=== PATIENT | female | born 1965 | race African-American/Black ===

== ENCOUNTER 2017-03-09 06:42 | Emergency (ER) | payer MEDICAID ==
[~2017-03-09] VITALS: Ht 157.5 cm; Wt 57.0 kg
[2017-03-09] MEDS ORDERED: HYDROCHLOROTHIAZIDE 25MG TABLET PO ONE (07:45)
[2017-03-09] MEDS ORDERED: KETOROLAC 30MG/ML VIAL IM ONE (08:30)
[2017-03-09] MEDS ORDERED: ONDANSETRON 4MG ODT PO ONE (08:30)
[2017-03-09] MEDS: BENAZEPRIL 10MG TABLET PO SCH ×2 (08:35→09:12)
[2017-03-09 09:51] VITALS: BP 176/73
== END 2017-03-09 09:57 | disposition home or self-care (01) ==
LOC: ER 07:13
DX: L02.212 Cutaneous abscess of back [any part, except buttock and flank] (principal); M77.9 Enthesopathy, unspecified; I16.0 Hypertensive urgency; I10 Essential (primary) hypertension; F17.200 Nicotine dependence, unspecified, uncomplicated
CPT/HCPCS: 73610; 96372; 99284; J1885; Q0162; Z7610

== ENCOUNTER 2017-05-12 18:07 | Emergency (ER) | payer MEDICAID ==
[~2017-05-12] VITALS: Ht 157.5 cm; Wt 60.1 kg
[2017-05-12 18:25] VITALS: BP 153/102
== END 2017-05-12 19:08 | disposition home or self-care (01) ==
LOC: ER 18:17
DX: Z76.0 Encounter for issue of repeat prescription (principal); I10 Essential (primary) hypertension
CPT/HCPCS: 99283

== ENCOUNTER 2017-06-17 01:08 | Emergency (ER) | payer MEDICAID ==
[~2017-06-17] VITALS: Ht 157.5 cm; Wt 59.0 kg
[2017-06-17 01:45] LABS: BASOPHILS % 0.5 % (0.0-2.0); EOSINOPHILS % 0.9 % (0.0-5.0); HEMATOCRIT. 43.8 % (36.0-48.0); HEMOGLOBIN. 15.1 g/dL (12.0-16.0); LYMPHOCYTES % 33.8 % (20.0-50.0); MEAN CORPUSCULAR HEMOGLOBIN 29.4 pg (28.0-32.0); MEAN CORPUSCULAR VOLUME 85.1 fL (81.0-99.0); MEAN PLATELET VOLUME 6.6 fl (7.4-10.4); MONOCYTES % 6.8 % (2.0-8.0); PLATELET 357 x1000/uL (130-400); RED BLOOD CELL COUNT 5.14 mill/uL (4.2-5.4); RED CELL DISTRIBUTION WIDTH 16.9 % (11.6-14.6)
[2017-06-17 01:51] LABS: CHLORIDE 104 mEq/L (98-107)
[2017-06-17] MEDS ORDERED: BENAZEPRIL 10MG TABLET PO ONE (04:30)
[2017-06-17 04:41] VITALS: BP 152/98
== END 2017-06-17 04:58 | disposition home or self-care (01) ==
LOC: ER 01:18
DX: Z76.0 Encounter for issue of repeat prescription (principal); I10 Essential (primary) hypertension; F17.210 Nicotine dependence, cigarettes, uncomplicated
CPT/HCPCS: 36415; 80053; 85025; 99284; Z7610